=== PATIENT | male | born 1985 | race Caucasian/White ===

== ENCOUNTER → 2020-08-30 17:22 | Outpatient (CLI) | payer BC, SELFPAY ==
--- NOTE | ~2020-08-30 | XR_ITS ---
[id number]_CR 08/30/2020 17:55 Indication: Cervicalgia Procedure: 5 views of the cervical spine Comparison: No prior studies for comparison. Findings: No fracture, subluxation or dislocation. Lung apices are normal. No prevertebral soft tissu e swelling. Straightening of cervical lordosis, likely due to patient positioning or muscle spasm. Od ontoid process within normal limits. Lateral masses normally aligned. Impression: 1: No acute abnormality of the cervical spine. Reviewed, dictated and finalized at location A. F [employer]ER Impression: 1: No acute abnormality of the cervical spine.
== END ==
PROVIDERS: Visit Provider Physician Assistant Medical
DX: M54.2 Cervicalgia (principal)
CPT/HCPCS: 72040